=== PATIENT | female | born 1935 | race African-American/Black ===

== ENCOUNTER 2019-11-26 18:10 | Inpatient (IN) | payer MEDICARE, MEDICAID ==
[~2019-11-26] VITALS: Ht 157.5 cm; Wt 44.9 kg
[~2019-11-26 18:10] MED LIST: LOSA1TAB9 PO
[2019-11-26] MEDS ORDERED: DIPHENHYDRAMINE 25MG CAPSULE PO PRN (19:15)
[2019-11-26] MEDS ORDERED: ACETAMINOPHEN 325MG TABLET PO ONE (19:15)
[2019-11-26] MEDS ORDERED: ONDANSETRON 4MG ODT PO PRN (19:15)
[2019-11-26] MEDS ORDERED: GUAIFENESIN 200MG/10ML SUGAR FREE UDC PO PRN (19:15)
[2019-11-26 20:00] VITALS: BP 137/71
[2019-11-26] MEDS ORDERED: ACETAMINOPHEN 325MG TABLET PO PRN (20:00)
[2019-11-26 20:05] VITALS: BP 137/71
[2019-11-26] MEDS ORDERED: LEVOFLOXACIN 250MG PREMIX 50 ML IV SCH (21:00)
[2019-11-26] MEDS ORDERED: TEMAZEPAM 15MG CAPSULE PO PRN (21:00)
[2019-11-26] MEDS: ENOXAPARIN 30MG/0.3ML SYR SUBCUT SCH (22:31)
[2019-11-26] MEDS: FAMOTIDINE 20MG TABLET PO SCH (22:31)
[2019-11-26] MEDS: DEXT 5%/0.45% NACL KCL 20MEQ/L 1,000 ML IV SCH (22:54)
[2019-11-27] MEDS: DEXT 5%/0.45% NACL KCL 20MEQ/L 1,000 ML IV SCH ×2 (06:28→16:32)
[2019-11-27 07:04] LABS: BASOPHILS % 0.1 % (0.0-2.0); EOSINOPHILS % 0.4 % (0.0-5.0); HEMATOCRIT. 25.3 % (36.0-48.0); HEMOGLOBIN. 8.4 g/dL (12.0-16.0); LYMPHOCYTES % 7.5 % (20.0-50.0); MEAN CORPUSCULAR HEMOGLOBIN 27.2 pg (28.0-32.0); MEAN CORPUSCULAR VOLUME 81.7 fL (81.0-99.0); MEAN PLATELET VOLUME 8.1 fl (7.4-10.4); MONOCYTES % 8.7 % (2.0-8.0); NEUTROPHILS % 83.3 % (40.0-76.0); PLATELET 270 x1000/uL (130-400); RED CELL DISTRIBUTION WIDTH 16.2 % (11.6-14.6)
[2019-11-27 07:23] LABS: CHLORIDE 109 mEq/L (98-107)
[2019-11-27 07:57] VITALS: BP 163/79
[2019-11-27 08:02] VITALS: BP 163/79
[2019-11-27] MEDS: FERROUS SULFATE 300MG/5ML UDC PO SCH ×3 (08:15→16:31)
[2019-11-27] MEDS ORDERED: LACTULOSE 20G/30ML UDC PO NR (15:15)
[2019-11-27] MEDS: DOCUSATE SODIUM 100MG CAPSULE PO SCH (16:31)
[2019-11-27 16:52] VITALS: BP 176/79
[2019-11-27] MEDS: CLONIDINE 0.1MG TABLET PO PRN (17:38)
[2019-11-27 20:00] VITALS: BP 109/49
[2019-11-27] MEDS ORDERED: LACTULOSE 20G/30ML UDC PO SCH (20:00)
[2019-11-27] MEDS: FAMOTIDINE 20MG TABLET PO SCH (21:14)
[2019-11-27] MEDS: POLYETHYLENE GLYCOL 3350 (17GM) 1 DOSE PACK PO SCH (21:15)
[2019-11-27] MEDS: ENOXAPARIN 30MG/0.3ML SYR SUBCUT SCH (21:15)
[2019-11-28] MEDS: DEXT 5%/0.45% NACL KCL 20MEQ/L 1,000 ML IV SCH ×2 (03:07→12:17)
[2019-11-28 07:06] LABS: BASOPHILS % 0.2 % (0.0-2.0); EOSINOPHILS % 0.4 % (0.0-5.0); HEMATOCRIT. 22.6 % (36.0-48.0); HEMOGLOBIN. 7.3 g/dL (12.0-16.0); LYMPHOCYTES % 7.4 % (20.0-50.0); MEAN CORPUSCULAR HEMOGLOBIN 26.7 pg (28.0-32.0); MEAN CORPUSCULAR VOLUME 82.7 fL (81.0-99.0); MEAN PLATELET VOLUME 8.5 fl (7.4-10.4); MONOCYTES % 8.9 % (2.0-8.0); NEUTROPHILS % 83.1 % (40.0-76.0); PLATELET 221 x1000/uL (130-400); RED BLOOD CELL COUNT 2.74 mill/uL (4.2-5.4); RED CELL DISTRIBUTION WIDTH 15.9 % (11.6-14.6)
[2019-11-28 07:21] LABS: VITAMIN B12 SERUM 1514 pg/mL (211-911)
[2019-11-28 07:29] LABS: PHOSPHORUS 3.3 mg/dL (2.5-4.9)
[2019-11-28 07:30] LABS: FOLIC ACID (FOLATE) SERUM > 20.00 ng/mL (>5.38)
[2019-11-28 08:01] VITALS: BP 135/63
[2019-11-28] MEDS: FERROUS SULFATE 300MG/5ML UDC PO SCH ×3 (09:18→18:05)
[2019-11-28] MEDS: DOCUSATE SODIUM 100MG CAPSULE PO SCH ×2 (09:18→18:05)
[2019-11-28] MEDS: MAGNESIUM OXIDE 400MG TABLET PO SCH (18:05)
[2019-11-28 20:00] VITALS: BP 136/68
[2019-11-28] MEDS: ENOXAPARIN 30MG/0.3ML SYR SUBCUT SCH (20:59)
[2019-11-28] MEDS: POLYETHYLENE GLYCOL 3350 (17GM) 1 DOSE PACK PO SCH (20:59)
[2019-11-28] MEDS: FAMOTIDINE 20MG TABLET PO SCH (20:59)
[2019-11-29 06:50] LABS: BASOPHILS % 0.4 % (0.0-2.0); EOSINOPHILS % 0.4 % (0.0-5.0); HEMATOCRIT. 23.6 % (36.0-48.0); HEMOGLOBIN. 7.6 g/dL (12.0-16.0); MEAN CORPUSCULAR HEMOGLOBIN 26.6 pg (28.0-32.0); MEAN CORPUSCULAR VOLUME 82.9 fL (81.0-99.0); MEAN PLATELET VOLUME 8.5 fl (7.4-10.4); MONOCYTES % 9.3 % (2.0-8.0); NEUTROPHILS % 80.9 % (40.0-76.0); PLATELET 262 x1000/uL (130-400); RED BLOOD CELL COUNT 2.85 mill/uL (4.2-5.4)
[2019-11-29] MEDS: DOCUSATE SODIUM 100MG CAPSULE PO SCH ×2 (08:15→16:43)
[2019-11-29] MEDS: MAGNESIUM OXIDE 400MG TABLET PO SCH ×2 (08:15→16:43)
[2019-11-29] MEDS ORDERED: IRON SUCROSE COMPLEX 100 MG in SODIUM CHLORIDE 0.9% 100 ML IV SCH (09:00)
[2019-11-29 09:44] VITALS: BP 150/76
[2019-11-29 12:41] LABS: PROTHROMBIN TIME 10.9 sec (9.6-11.0)
[2019-11-29 20:00] VITALS: BP 124/64
[2019-11-29] MEDS: POLYETHYLENE GLYCOL 3350 (17GM) 1 DOSE PACK PO SCH (20:37)
[2019-11-29] MEDS: FAMOTIDINE 20MG TABLET PO SCH (20:37)
[2019-11-29] MEDS: IRON SUCROSE COMPLEX 100 MG in SODIUM CHLORIDE 0.9% 100 ML IV SCH (20:37)
[2019-11-30 07:36] VITALS: BP 138/67
[2019-11-30 08:09] LABS: BASOPHILS % 0.3 % (0.0-2.0); EOSINOPHILS % 0.4 % (0.0-5.0); HEMATOCRIT. 25.5 % (36.0-48.0); HEMOGLOBIN. 8.3 g/dL (12.0-16.0); LYMPHOCYTES % 8.8 % (20.0-50.0); MEAN CORPUSCULAR HEMOGLOBIN 26.7 pg (28.0-32.0); MEAN CORPUSCULAR VOLUME 82.4 fL (81.0-99.0); MEAN PLATELET VOLUME 8.7 fl (7.4-10.4); MONOCYTES % 9.6 % (2.0-8.0); NEUTROPHILS % 80.9 % (40.0-76.0); PLATELET 274 x1000/uL (130-400); RED BLOOD CELL COUNT 3.09 mill/uL (4.2-5.4); RED CELL DISTRIBUTION WIDTH 15.7 % (11.6-14.6)
[2019-11-30] MEDS: DOCUSATE SODIUM 100MG CAPSULE PO SCH ×2 (08:24→16:23)
[2019-11-30] MEDS: MAGNESIUM OXIDE 400MG TABLET PO SCH ×2 (08:24→16:23)
[2019-11-30 20:00] VITALS: BP 138/72
[2019-11-30] MEDS: POLYETHYLENE GLYCOL 3350 (17GM) 1 DOSE PACK PO SCH (20:25)
[2019-11-30] MEDS: IRON SUCROSE COMPLEX 100 MG in SODIUM CHLORIDE 0.9% 100 ML IV SCH (20:25)
[2019-11-30] MEDS: FAMOTIDINE 20MG TABLET PO SCH (20:25)
[2019-12-01] VITALS (11 sets, daily range): BP systolic 134–149; BP diastolic 58–95
[2019-12-01 07:01] LABS: BASOPHILS % 0.4 % (0.0-2.0); EOSINOPHILS % 0.3 % (0.0-5.0); HEMATOCRIT. 22.1 % (36.0-48.0); HEMOGLOBIN. 7.1 g/dL (12.0-16.0); LYMPHOCYTES % 9.5 % (20.0-50.0); MEAN CORPUSCULAR HEMOGLOBIN 26.5 pg (28.0-32.0); MEAN PLATELET VOLUME 8.4 fl (7.4-10.4); MONOCYTES % 10.1 % (2.0-8.0); NEUTROPHILS % 79.7 % (40.0-76.0); PLATELET 268 x1000/uL (130-400); RED BLOOD CELL COUNT 2.69 mill/uL (4.2-5.4); RED CELL DISTRIBUTION WIDTH 15.6 % (11.6-14.6)
[2019-12-01] MEDS: DOCUSATE SODIUM 100MG CAPSULE PO SCH ×2 (08:39→16:50)
[2019-12-01] MEDS ORDERED: ACETAMINOPHEN 325MG TABLET PO NR (09:45)
[2019-12-01] MEDS ORDERED: ACETAMINOPHEN 325MG TABLET PO SCH (13:00)
[2019-12-01 15:22] LABS: HEMATOCRIT 24.1 % (36.0-48.0)
[2019-12-01] MEDS: POLYETHYLENE GLYCOL 3350 (17GM) 1 DOSE PACK PO SCH (20:38)
[2019-12-01] MEDS: FAMOTIDINE 20MG TABLET PO SCH (20:38)
[2019-12-01] MEDS: IRON SUCROSE COMPLEX 100 MG in SODIUM CHLORIDE 0.9% 100 ML IV SCH (20:38)
[2019-12-02 06:54] LABS: BASOPHILS % 0.4 % (0.0-2.0); EOSINOPHILS % 0.4 % (0.0-5.0); HEMATOCRIT. 24.2 % (36.0-48.0); LYMPHOCYTES % 9.6 % (20.0-50.0); MEAN CORPUSCULAR HEMOGLOBIN 27.5 pg (28.0-32.0); MEAN PLATELET VOLUME 8.1 fl (7.4-10.4); MONOCYTES % 9.7 % (2.0-8.0); NEUTROPHILS % 79.9 % (40.0-76.0); PLATELET 256 x1000/uL (130-400); RED BLOOD CELL COUNT 2.92 mill/uL (4.2-5.4); RED CELL DISTRIBUTION WIDTH 15.7 % (11.6-14.6)
[2019-12-02] MEDS: DOCUSATE SODIUM 100MG CAPSULE PO SCH ×2 (08:14→16:29)
[2019-12-02] MEDS: POLYETHYLENE GLYCOL 3350 (17GM) 1 DOSE PACK PO SCH (08:16)
[2019-12-02 08:19] VITALS: BP 161/63
[2019-12-02] MEDS: CLONIDINE 0.1MG TABLET PO PRN (08:48)
[2019-12-02 12:18] VITALS: BP 137/78
[2019-12-02 20:00] VITALS: BP_SYST 147; BP_SYST 154; BP_DIAS 76; BP_DIAS 82
[2019-12-02] MEDS: FAMOTIDINE 20MG TABLET PO SCH (20:34)
[2019-12-02] MEDS: IRON SUCROSE COMPLEX 100 MG in SODIUM CHLORIDE 0.9% 100 ML IV SCH (21:00)
[2019-12-03 07:00] VITALS: BP 157/79
[2019-12-03 07:18] LABS: BASOPHILS % 0.3 % (0.0-2.0); EOSINOPHILS % 0.7 % (0.0-5.0); HEMATOCRIT. 25.9 % (36.0-48.0); HEMOGLOBIN. 8.4 g/dL (12.0-16.0); MEAN CORPUSCULAR HEMOGLOBIN 27.3 pg (28.0-32.0); MEAN CORPUSCULAR VOLUME 84.1 fL (81.0-99.0); MEAN PLATELET VOLUME 8.6 fl (7.4-10.4); MONOCYTES % 9.1 % (2.0-8.0); NEUTROPHILS % 78.9 % (40.0-76.0); PLATELET 236 x1000/uL (130-400); RED BLOOD CELL COUNT 3.08 mill/uL (4.2-5.4); RED CELL DISTRIBUTION WIDTH 15.8 % (11.6-14.6)
[2019-12-03] MEDS: DOCUSATE SODIUM 100MG CAPSULE PO SCH (08:11)
[2019-12-03 13:06] LABS: 25-HYDROXY VITAMIN D3 15 ng/mL (.)
[2019-12-03] MEDS ORDERED: ERGOCALCIFEROL 50000UNITS CAPSULE PO SCH (13:30)
[2019-12-03 15:29] VITALS: BP 137/74
[2019-12-03 15:30] VITALS: BP 137/74
== END 2019-12-03 16:23 | disposition home health service (06) | DRG 947 ==
PROVIDERS: ADMIT Physical Medicine & Rehabilitation Spinal Cord Injury Medicine; ATTEND Internal Medicine
DX: R53.81 Other malaise (principal); A41.9 Sepsis, unspecified organism; E46 Unspecified protein-calorie malnutrition; Z68.1 Body mass index [BMI] 19.9 or less, adult; K80.12 Calculus of gallbladder with acute and chronic cholecystitis without obstruction; N17.9 Acute kidney failure, unspecified; D50.9 Iron deficiency anemia, unspecified; E11.22 Type 2 diabetes mellitus with diabetic chronic kidney disease; F39 Unspecified mood [affective] disorder; I12.9 Hypertensive chronic kidney disease with stage 1 through stage 4 chronic kidney disease, or unspecified chronic kidney disease; I48.91 Unspecified atrial fibrillation; K82.A1 Gangrene of gallbladder in cholecystitis; K82.8 Other specified diseases of gallbladder; N18.9 Chronic kidney disease, unspecified; Z85.038 Personal history of other malignant neoplasm of large intestine; Z90.49 Acquired absence of other specified parts of digestive tract; Z92.21 Personal history of antineoplastic chemotherapy; Z92.3 Personal history of irradiation
CPT/HCPCS: 36415; 80048; 80053; 82270; 82306; 82607; 82746; 83540; 83550; 83735; 84100; 84134; 84443; 85014; 85018; 85025; 86850; 86900; 86920; 92610; 93970; 97110; 97112; 97116; 97162; 97166; 97530; 97535; J1650; J1956; J7050; P9016